=== PATIENT | male | born 1955 | race Two or more races ===

== ENCOUNTER 2020-01-13 22:02 | Emergency (ER) | payer SELFPAY ==
[~2020-01-13] VITALS: Ht 175.3 cm; Wt 81.6 kg
[2020-01-13] MEDS ORDERED: THIAMINE 100mg/ml INJ (200mg/2ml VIAL) ONE (22:16)
[2020-01-13] MEDS ORDERED: SODIUM BICARBONATE 8.4 % INJ 50ML VIAL IV ONE (22:24)
[2020-01-13 22:29] LABS: Basophils # (auto) 0 uL; Basophils % (auto) 0.3 % (0.0-2.0); Eosinophils # (auto) 0 uL; Eosinophils % (auto) 0.2 % (0.0-7.0); Hematocrit 40.2 % (41.0-53.0); Hemoglobin 12.5 g/dL (13.5-17.5); Lymphocytes # (auto) 1.8 uL; Lymphocytes % (auto) 11.8 % (10.0-50.0); Mean Corpuscular Hemoglobin 29.6 pg (28.0-32.0); Mean Corpuscular Hgb Conc. 31.1 g/dL (32.0-36.0); Mean Corpuscular Volume 95.2 fL (80.0-100.0); Monocytes # (auto) 1.2 uL; Monocytes % (auto) 7.5 % (0.0-12.0); Neutrophils # (auto) 12.4 uL; Neutrophils % (auto) 80.2 % (37.0-80.0); Nucleated Red Blood Cells % 0.5 %; Platelet Count (auto) 232 10^3/uL (140-450); Red Blood Cells 4.22 10^6/uL (4.5-5.90); Red Cell Distribution Width 15.5 % (11.8-14.3); White Blood Cell 15.5 10^3/uL (4.4-10.8)
[2020-01-13 22:40] VITALS: BP 127/53
[2020-01-13] MEDS ORDERED: THIAMINE 100mg/ml INJ (200mg/2ml VIAL) IV ONE (22:45)
[2020-01-13 22:52] LABS: Urine Bacteria NONE SEEN /hpf (None Seen); Urine Blood 1+ /uL (Negative); Urine Mucus FEW (None Seen); Urine Specific Gravity 1.009 (1.001-1.035); Urine Sperm PRESENT /hpf (None Seen); Urine WBC 69 /hpf (0 - 3)
[2020-01-13 22:53] LABS: Alanine Aminotransferase 767 U/L (16-61); Albumin 2.6 g/dL (3.4-5.0); Anion Gap 20 (5-15); BUN/Creatinine Ratio 9.3; Blood Urea Nitrogen 27 mg/dL (7-18); Carbon Dioxide 14 mmol/L (21-32); Chloride 105 mmol/L (98-107); GFR African American 28 mL/min; GFR Non-African American 23 mL/min; Glucose 227 mg/dL (74-106); Magnesium 2.7 mg/dL (1.6-2.6); Potassium 5.5 mmol/L (3.5-5.1); Sodium 139 mmol/L (136-145)
[2020-01-13 22:56] LABS: Calcium 14.9 mg/dL (8.5-10.1)
[2020-01-13 22:59] LABS: Amphetamine Screen, Urine NEGATIVE (NEGATIVE); Barbiturate Scree,Urine NEGATIVE (NEGATIVE); Benzodiazephine Screen, Urine NEGATIVE (NEGATIVE); Cannabinoid Screen, Urine NEGATIVE (NEGATIVE); Cocaine Screen, Urine NEGATIVE (NEGATIVE); Opiate Scree,Urine NEGATIVE (NEGATIVE); Phencyclidine Screen, Urine NEGATIVE (NEGATIVE)
[2020-01-13 23:02] LABS: Alkaline Phosphatase 86 U/L (45-117); Aspartate Aminotransferase 1545 U/L (15-37); Bilirubin, Total 0.3 mg/dL (0.2-1.0); Total Protein 6.8 g/dL (6.4-8.2)
[2020-01-13] MEDS ORDERED: MIDAZOLAM DRIP 50 mg/50mL 50 ML IV SCH (23:28)
[2020-01-13] MEDS ORDERED: MIDAZOLAM DRIP 50 mg/50mL 50 ML IV ONE (23:34)
[2020-01-13] MEDS ORDERED: NOREPINEPHRINE 8 MG/250ML KIT 250 ML IV ONE (23:51)
[2020-01-13 23:53] VITALS: BP 127/53
[2020-01-14] MEDS ORDERED: NOREPINEPHRINE 8 MG/250ML KIT 250 ML IV SCH (00:15)
[2020-01-14] MEDS ORDERED: SODIUM BICARBONATE 8.4 % INJ 50ML VIAL IV ONE ×2 (00:15→01:30)
[2020-01-14] MEDS ORDERED: DOPamine 1600MCG/ML D5W 250 ML IV ONE (00:30)
[2020-01-14] MEDS ORDERED: PHENYLEPHRINE INJ 20 MG in D5W 5% 248 ML IV ONE (02:15)
[2020-01-14] MEDS ORDERED: PHENYLEPHRINE IV 0 ML IV ONE (02:17)
[2020-01-14 02:19] VITALS: BP 35/18
[2020-01-14] MEDS ORDERED: CALCIUM GLUC 4.65meq/50ml D5AE 0 ML IV ONE (02:31)
== END 2020-01-14 02:37 | disposition home or self-care (01) ==
LOC: ER 22:11
DX: I46.9 Cardiac arrest, cause unspecified (principal); E11.9 Type 2 diabetes mellitus without complications
CPT/HCPCS: 36415; 36600; 71045; 80053; 80307; 81001; 82805; 83735; 84484; 85025; 87070; 87205; 92950; 96374; 99291; J1265; J2250; J2370; J3411; J7030; J7060; 94002; J0610